=== PATIENT | female | born 1945 | race Caucasian/White ===

== ENCOUNTER 2018-06-27 16:33 | Emergency (ER) | payer OTHER, MEDICARE ==
[~2018-06-27] VITALS: Ht 175.3 cm; Wt 76.4 kg
[2018-06-27 16:38] VITALS: BP 179/78; Ht 175.3 cm; Wt 76.4 kg
== END 2018-06-27 17:40 | disposition home or self-care (01) ==
LOC: ED 16:33
DX: S01.112A Laceration without foreign body of left eyelid and periocular area, initial encounter (principal); I10 Essential (primary) hypertension; E11.9 Type 2 diabetes mellitus without complications; M79.7 Fibromyalgia; W22.8XXA Striking against or struck by other objects, initial encounter; Y93.02 Activity, running; Y92.89 Other specified places as the place of occurrence of the external cause; Y99.8 Other external cause status
CPT/HCPCS: J2001

== ENCOUNTER 2018-06-29 11:27 | Emergency (ER) | payer OTHER, MEDICARE ==
[~2018-06-29] VITALS: Ht 177.8 cm; Wt 95.7 kg
[2018-06-29 11:36] VITALS: BP 156/76; Ht 177.8 cm; Wt 95.7 kg
== END 2018-06-29 12:25 | disposition home or self-care (01) ==
LOC: ED 11:27
DX: S01.112D Laceration without foreign body of left eyelid and periocular area, subsequent encounter (principal); I10 Essential (primary) hypertension; E11.9 Type 2 diabetes mellitus without complications; M79.7 Fibromyalgia; Z88.2 Allergy status to sulfonamides; X58.XXXD Exposure to other specified factors, subsequent encounter

== ENCOUNTER 2018-07-02 08:13 | Emergency (ER) | payer OTHER, MEDICARE ==
[~2018-07-02] VITALS: Ht 177.8 cm; Wt 95.7 kg
[2018-07-02 08:20] VITALS: BP 141/67; Ht 177.8 cm; Wt 95.7 kg
== END 2018-07-02 09:19 | disposition home or self-care (01) ==
LOC: ED 08:13
DX: S01.112D Laceration without foreign body of left eyelid and periocular area, subsequent encounter (principal); I10 Essential (primary) hypertension; E11.9 Type 2 diabetes mellitus without complications; M79.7 Fibromyalgia; Z88.2 Allergy status to sulfonamides; Z90.710 Acquired absence of both cervix and uterus; Z98.890 Other specified postprocedural states; X58.XXXD Exposure to other specified factors, subsequent encounter